=== PATIENT | male | born 1940 | race Caucasian/White ===

== ENCOUNTER 2022-09-28 14:15 | Emergency (ER) | payer MEDICARE, SELFPAY ==
--- NOTE | 2022-09-28 14:16 | XRR_ITS ---
PROCEDURE INFORMATION: Exam: XR Right Shoulder Exam date and time: 09/28/2022 2:33 PM Age: 82 years old Clinical indication: Injury or trauma; Fall; Blunt trauma (contusions or hematomas); Shoulder; Right TECHNIQUE: Imaging protocol: Radiologic exam of the Right shoulder. Views: 2 or more views. COMPARISON: No relevant prior studies available. FINDINGS: Bones/joints: Probable mild osteopenia. No acute fracture dislocation. Minimal spurring of the inferior glenohumeral joint consistent with early degenerative disease. Soft tissues: Normal. Other findings: Three views submitted. XR/XR shoulder RT min 2V* [id number] IMPRESSION: No acute findings.
[2022-09-28 14:19] VITALS: BMI 24.3
[2022-09-28 14:21] VITALS: BP 197/90; PULSE 70; RESP 18; TEMP 37.2; O2SAT 97
[2022-09-28 14:25] VITALS: BP 175/82; PULSE 70; RESP 18; TEMP 37.2; O2SAT 97
--- NOTE | 2022-09-28 14:26 | ED_ITS ---
HPI - Extremity Problem General: Chief complaint: Extremity Injury, Upper Stated complaint: fall/R shoulder pain/double vision Time Seen by Provider: 09/28/22 14:26 History of Present Illness: 82-year-old male patient comes in today for evaluation of right shoulder and neck pain with double vision after a fall 1 week ago. Patient tripped and fell down an embankment 1 week ago hitting his head. Patient reports occasional double vision while watching TV. Patient denies any chest pain. Patient reports some right shoulder trapezius discomfort. Patient takes no routine medications, patient does smoke cigar occasionally. Associated symptoms: Deny chest pain or rash Review of Systems Card: Denies: chest pain Resp: Denies: dyspnea GI: Denies: nausea or vomiting Musc: Reports: extremity pain Skin/Breast: Denies: rash Physical Exam Const: COMMON NORMALS: alert HENMT: COMMON NORMALS: atraumatic and TM's normal bilaterally HEAD & SCALP: atraumatic TYMPANIC MEMBRANE: TM's normal bilaterally THROAT: posterior oropharynx normal Eye: GENERAL EYE: appearance normal, both eyes and all related structures Neck/C-Spine: CERVICAL SPINE: No Cervical spine tenderness and Yes Trapezius muscle tenderness right Chest: COMMONS NORMALS: normal palpation of entire chest wall Resp: COMMON NORMALS: normal respiratory effort Cardio: COMMON NORMALS: regular rate and regular rhythm RATE: regular rate RHYTHM: regular rhythm GI: COMMON NORMALS: non-tender : COMMON NORMALS: Yes no CVA tenderness BLADDER/KIDNEY EXAM: Yes no CVA tenderness Back/Pelvis: COMMON NORMALS: no CVA tenderness and thoracic and lumbar spine normal to inspection Extremity: COMMON NORMALS: normal to inspection Neuro: SENSORIUM/ORIENTATION: Yes alert Skin: COMMON NORMALS: turgor normal GENERAL SKIN EXAM: turgor normal Course Vital Signs: Vital signs: Vital Signs Temperature 98.9 F 09/28/22 14:25 Pulse Rate 70 09/28/22 14:25 Respiratory Rate 18 09/28/22 14:25 Blood Pressure 175/82 09/28/22 14:25 Pulse Oximetry 97 09/28/22 14:25 Oxygen Delivery Me thod 09/28/22 14:25 MDM - Extremity (Nontraumatic) Medical Decision Making 82-year-old male patient comes in today for concerns of right shoulder pain and neck pain secondary to a fall from 1 week. On exam patient has some tenderness in the trapezius muscle on the right side. Patient had 3 educed range of motion of the right shoulder which he said is chronic. Vital signs are normal except for some elevation in blood pressure. Patient does not take any routine medications. Differential diagnosis includes intracranial bleeding, fracture, contusions, strain. CT of the head and neck indicated no fractures or in tracranial bleeding. X-rays of the right ribs and right shoulder showed no signs of fracture or pneumonia. Patient has had some double vision he reports I believe it might be secondary to a concussion but did recommend further evaluation with primary care or eye adult daycare coordinator. Patient reported understanding agreed to plan. Lab Data Radiology Impressions Shoulder X-Ray 09/28/22 14:16 IMPRESSION: No acute findings. Cervical Spine CT 09/28/22 14:31 IMPRESSION: There is no evidence for fracture or facet dislocation. Head CT 09/28/22 14:31 IMPRESSION: There are no acute concerning abnormalities. Ribs X-Ray 09/28/22 14:31 IMPRESSION: No acute findings. Discharge Plan Discharge Patient Disposition: Home Clinical Impression: Contusion Qualifiers: Encounter type: initial encounter Contusion area: shoulder Laterality: right Qualified Code(s): S40.011A - Contusion of right shoulder, initial encounter Head injury Qualifiers: Encounter type: initial encounter Qualified Code(s): S09.90XA - Unspecified injury of head, initial encounter Condition: Stable Prescriptions: No Action No Known Home Medications Discharge Orders: Discharge ED (Routine); Ordered 09/28/22 Ordered By: Nakul Finn Discharge Diet: Usual diet Discharge Activity: Increase activity as tolerated Patient Instructions: Head Injury (ED) Activity Restrictions/Additional Instructions: Follow-up with primary care in 3 days for recheck. Return to ED for worsening symptoms or new concerns. Coding Level of Care Code ED Oven Operator Automatic for Christine Fwlalita Exam Comprehensive
--- NOTE | 2022-09-28 14:31 | CTR_ITS ---
PROCEDURE INFORMATION: Exam: CT Cervical Spine Without Contrast Exam date and time: 09/28/2022 2:51 PM Age: 82 years old Clinical indication: Injury or trauma; Fall; Blunt trauma; Additional info: Fall injury TECHNIQUE: Imaging protocol: Computed tomography of the cervical spine without contrast. Radiation optimization: All CT scans at this facility use at least one of these dose optimization techniques: automated exposure control; mA and/or kV adjustment per patient size (includes targeted exams where dose is matched to clinical indication); or iterative reconstruction. COMPARISON: CR (CHEST, ) 09/28/2022 2:43 PM RADIATION DOSE METRICS: Total DLP (mGy-cm): 160.8 FINDINGS: Bones/joints: No acute fracture. Normal alignment. Degenerative change is identified in the spine. There is disc space narrowing and osteophyte formation especially at C3/4, C4/5, C5/6 and C6/7. Lungs: Lung apices are normal. Soft tissues: Unremarkable. CT/CT cervical spin wo con* [id number] IMPRESSION: There is no evidence for fracture or facet dislocation.
--- NOTE | 2022-09-28 14:31 | XRR_ITS ---
PROCEDURE INFORMATION: Exam: XR Right Ribs with PA Chest Exam date and time: 09/28/2022 2:43 PM Age: 82 years old Clinical indication: Injury or trauma; Fall; Rib area; Blunt trauma (contusions or hematomas); Additional info: Fall injury TECHNIQUE: Imaging protocol: Radiologic exam of the Right ribs with PA chest. Views: 3 views COMPARISON: CR (CHEST, ) 09/28/2022 2:33 PM FINDINGS: Lungs: No consolidation. Pleural spaces: Unremarkable. No pleural effusion. No pneumothorax. Heart/Mediastinum: No cardiomegaly. Vasculature: Tortuous thoracic aorta. Bones/joints: Slight lower leftward lower thoracic scoliosis with multilevel disc degeneration and endplate osteophytes. Probable osteopenia. No acute displaced rib fracture or osseous destruction. XR/XR ribs RT mn 3V w CXR1V [id number] IMPRESSION: No acute findings.
--- NOTE | 2022-09-28 14:31 | CTR_ITS ---
PROCEDURE INFORMATION: Exam: CT Head Without Contrast Exam date and time: 09/28/2022 2:51 PM Age: 82 years old Clinical indication: Injury or trauma; Fall; Blunt trauma (contusions or hematomas); Additional info: Fall injury, vision abnorm TECHNIQUE: Imaging protocol: Computed tomography of the head without contrast. Radiation optimization: All CT scans at this facility use at least one of these dose optimization techniques: automated exposure control; mA and/or kV adjustment per patient size (includes targeted exams where dose is matched to clinical indication); or iterative reconstruction. COMPARISON: No relevant prior studies available. RADIATION DOSE METRICS: Total DLP (mGy-cm): 1143.31 FINDINGS: Brain: There is encephalomalacia in the inferior left frontal lobe.Moderate white matter disease and volume loss are identified. There is no acute infarct or edema. No hemorrhage. Cerebral ventricles: No ventriculomegaly. Paranasal sinuses: Visualized sinuses are unremarkable. No fluid levels. Mastoid air cells: Visualized mastoid air cells are well aerated. Bones/joints: Unremarkable. No acute fracture. Soft tissues: Unremarkable. CT/CT head wo con* [id number] IMPRESSION: There are no acute concerning abnormalities.
== END 2022-09-28 16:54 | disposition home or self-care (01) ==
PROVIDERS: Emergency Provider Nurse Practitioner Family
DX: S40.011A Contusion of right shoulder, initial encounter (principal); S09.90XA Unspecified injury of head, initial encounter; W17.81XA Fall down embankment (hill), initial encounter; H53.2 Diplopia
CPT/HCPCS: 70450; 71101; 72125; 73030; 99284

== ENCOUNTER → 2022-11-06 11:42 | Outpatient (BNVA) | payer MEDICARE, SELFPAY | PROVIDERS: Visit Provider Family Medicine | DX: S06.0XAA Concussion with loss of consciousness status unknown, initial encounter (principal); S43.401A Unspecified sprain of right shoulder joint, initial encounter; J44.9 Chronic obstructive pulmonary disease, unspecified; F17.200 Nicotine dependence, unspecified, uncomplicated; X58.XXXA Exposure to other specified factors, initial encounter | CPT/HCPCS: 80053; 85025 ==

== ENCOUNTER → 2023-12-25 15:35 | Outpatient (BNVA) | payer MEDICARE, SELFPAY | PROVIDERS: PCP Family Medicine; Visit Provider Family Medicine | DX: R53.81 Other malaise (principal) | CPT/HCPCS: 80053; 85025 ==

== ENCOUNTER 2024-02-01 16:42 | Emergency (ER) | payer MEDICARE, SELFPAY ==
[2024-02-01 17:07] VITALS: BP 163/79; PULSE 71; RESP 16; TEMP 36.6; O2SAT 99; BMI 22.1
--- NOTE | 2024-02-01 17:41 | ED_ITS ---
HPI - Eye Problem 2 General: Chief complaint: Eye Problems Stated complaint: Right eye pain Time Seen by Provider: 02/01/24 17:37 History of Present Illness: 83-year-old male patient comes in today with right eye redness and swelling with drainage. Patient reports that he noticed it this morning when he woke up and it has progressed throughout the day. Patient denies any other complaints. Patient reports no fever or chills. Review of Systems 2 General: Reports: 10 or more systems reviewed and unremarkable except in HPI and below Eyes: Reports: eye redness PFSH ED 2 PFSH: Medical History Traumatic amputation of multiple fingers Surgical History History of right hip replacement Family History Mother Cancer breast Denies family history of Diabetes CAD (coronary artery disease) Clotting disorder Dementia Hyperlipidemia Psychiatric illness Chronic kidney disease (CKD) Anesthesia complication Bleeding disorder Lung disease Hypertension Stroke Social History Smoking and tobacco/nicotine status: current some day tobacco/nicotine user cigars Cigar details: 2-3 cigars/day x 65. >150PY Alcohol intake: never Substance/Drug Use: never Lives independently: Yes Marital status: Single Number of children: 3 Current occupational status: employed Current occupation: Senior Foreman--odd jobs Current gender identity: Male Physical Exam 2 Const: COMMON NORMALS: alert HENMT: HEAD IMAGES: 1. Redness and swelling Eye: COMMON NORMALS: Equal, round and reactive pupils present VISUAL ACUITY: Yes acuity normal ALIGNMENT: Yes alignment normal PERIORBITAL: p eriorbital findings abnormal positive right periorbital swelling and periorbital erythema EYELID: eyelid abnormality right upper eyelid erythema, swelling and tenderness and right lower eyelid erythema and swelling CONJUNCTIVA: Yes conjunctival abnormal positive right conjunctival chemosis PUPIL: Yes Equal, round and reactive pupils present EOM: No EOM abnormal Neck/C-Spine: COMMON NORMALS: full ROM Resp: COMMON NORMALS: normal respiratory effort and clear to auscultation bilaterally AUSCULTATION: clear to auscultation bilaterally Cardio: COMMON NORMALS: regular rate and regular rhythm RATE: regular rate RHYTHM: regular rhythm Back/Pelvis: COMMON NORMALS: thoracic and lumbar spine normal to inspection Extremity: COMMON NORMALS: normal to inspection Neuro: SENSORIUM/ORIENTATION: Yes alert Skin: NARRATIVE SKIN EXAM: Redness periorbital right eye Course 2 Vital Signs: Vital signs: Vital Signs Temperature 97.9 F 02/01/24 17:07 Pulse Rate 71 02/01/24 17:07 Respiratory Rate 16 02/01/24 17:07 Blood Pressure 163/79 02/01/24 17:07 Pulse Oximetry 98 02/01/24 18:37 Oxygen Delivery Me thod Room Air 02/01/24 18:37 MDM - Eye Problem Medical Decision Making 83-year-old male patient comes in with redness and swelling to the right periorbital region. Ocular eye movement elicits no pain. Patient does have some discomfort with palpation of the eye. Respirations are even, lungs are clear to auscultation. Skin is warm and dry. Differential diagnosis includes preseptal cellulitis, orbital cellulitis, conjunctivitis. CT of the orbits noted preseptal cellulitis. No sign of orbital cellulitis at this time. Patient was given a gram of Rocephin IM and will be continued on Augmentin 875 1 tablet twice daily for the next 10 days. Patient was also given some dexamethasone IM x 1 to help with swelling around the eye. Patient will be kept on neomycin polymyxin and dexamethasone ophthalmic solution suspension 4 times a day for the next 7 days. Patient and family both report understanding and need for follow-up or return to the ER. Lab Data Radiology Impressions Orbit CT 02/01/24 17:46 IMPRESSION: 1. Inflammatory changes are seen in the lateral extraconal spaces, no intraconal space involvement is apparent. 2. Preseptal cellulitis of the right orbit. 3. Cresecent preseptal collection with hyperattenuating borders consistent with chemosis of the right orbit. 4. Further evaluation with MRI with and without contrast is recommended if symptoms worsened. All radiology interpretation(s) finalized by discharge Discharge Plan Discharge Patient Disposition: Home Clinical Impression: Preseptal cellulitis of right eye Condition: Stable Prescriptions: New amoxicillin-pot clavulanate 875-125 mg tablet 1 tab PO BID Qty: 20 0RF No Action ibuprofen 600 mg tablet 600 mg PO BID PRN (Reason: pain) Qty: 30 0RF Discharge Orders: Discharge ED (Routine); Ordered 02/01/24 Ordered By: Nakul Finn Referrals: Ketan Vázquez MD [Primary Care Provider] - Discharge Diet: Usual diet Discharge Activity: Increase activity as tolerated Patient Instructions: Periorbital Cellulitis (ED) Activity Restrictions/Additional Instructions: Use acetaminophen and and/or ibuprofen as needed for discomfort. Take oral antibiotics 1 tablet twice a day for 10 days. Drink plenty of water and fluids. Follow-up with primary care in 3 days for recheck. Return to ED for new concerns. Use antibiotic eyedrops 2 drops to the affected eye 4 times a day while awake for the next 7 days. Coding Level of Care Code ED Cable Television Program Director for Christine Freeman
--- NOTE | 2024-02-01 17:46 | CTR_ITS ---
PROCEDURE INFORMATION: Exam: CT Orbits Without Contrast Exam date and time: 02/01/2024 4:57 PM Age: 83 years old Clinical indication: Mass, lump, or swelling; Patient HX: Swelling of right orbit with drainage. ; Additional info: Periorbital cellulitis TECHNIQUE: Imaging protocol: Computed tomography of the orbits without contrast. Radiation optimization: All CT scans at this facility use at least one of these dose optimization techniques: automated exposure control; mA and/or kV adjustment per patient size (includes targeted exams where dose is matched to clinical indication); or iterative reconstruction. COMPARISON: CT head wo con* [id number] 09/28/2022 2:51 PM RADIATION DOSE METRICS: Total DLP (mGy-cm): 423.08 FINDINGS: Paranasal sinuses: Frontal sinuses are clear, maxillary, sphenoid, ethmoid, and frontal sinuses are clear. Mastoid air cells: Partially visualized mastoids are clear. Orbital cavities: There is right periorbital soft tissue swelling, no periosteal reaction or lucencies are present. There appears to be a low attenuating cresecent preseptal collection with hyperattenuating borders series 5, image 24 measuring 15 x 3 millimeters. There is preseptal periorbital soft tissue edema. Inflammatory changes are seen in the lateral extraconal spaces, no intraconal space involvement is apparent. Bones/joints: No acute fracture. Soft tissues: No significant facial soft tissue swelling. CT/CT orbit BI wo con* [id number] IMPRESSION: 1. Inflammatory changes are seen in the lateral extraconal spaces, no intraconal space involvement is apparent. 2. Preseptal cellulitis of the right orbit. 3. Cresecent preseptal collection with hyperattenuating borders consistent with chemosis of the right orbit. 4. Further evaluation with MRI with and without contrast is recommended if symptoms worsened.
[2024-02-01] MEDS: iohexol 350 mg/mL 500 mL Btl (per mL) IV (18:03)
[2024-02-01] MEDS: dexamethasone 10 mg/mL INJ IM (18:10)
[2024-02-01] MEDS: cefTRIAXone 1,000 MG in water for injection-sterile 2.1 ML 2 MG IM (18:10)
[2024-02-01] MEDS: neomycin-poly-dex Op 5 mL Btl 2 DROP EYE-RIGHT (18:13)
[2024-02-01 18:37] VITALS: O2SAT 98
[2024-02-01 19:15] VITALS: BP 163/79; PULSE 71; RESP 16; TEMP 36.6; O2SAT 98
== END 2024-02-01 19:15 | disposition home or self-care (01) ==
PROVIDERS: Emergency Provider Nurse Practitioner Family; PCP Family Medicine
DX: L03.213 Periorbital cellulitis (principal); F17.290 Nicotine dependence, other tobacco product, uncomplicated
CPT/HCPCS: 70480; 96372; 99285; J0696; J1100; Q9967